=== PATIENT | male | born 1960 | race Caucasian/White ===

== ENCOUNTER 2025-01-06 11:49 | Day surgery (SDC) | payer OTHER ==
[~2025-01-06] VITALS: Ht 190.5 cm; Wt 81.4 kg
[~2025-01-06 11:49] MED LIST: Lactated Ringer's 1,000 ML IV ONE; propofoL 50 ML IV ONE
[2025-01-06] MEDS ORDERED: TAMSULOSIN HCL0.4 M1 (12:35)
[2025-01-06] MEDS ORDERED: VALA500 (12:35)
[2025-01-06] MEDS ORDERED: Ritalin10 MG (12:36)
[2025-01-06] MEDS ORDERED: HUMIRA PEN40 MG/0.2 (12:36)
[2025-01-06] MEDS ORDERED: MONT5TCH (12:36)
[2025-01-06] MEDS ORDERED: Lactated Ringer's 1,000 ML IV ONE (12:52)
[2025-01-06] MEDS ORDERED: propofoL 50 ML IV ONE (13:57)
== END 2025-01-06 14:23 | disposition home or self-care (01) ==
LOC: ORSCSDS 11:49
PROVIDERS: Internal Medicine Gastroenterology
PROC: 0DBC8ZX Excision of Ileocecal Valve, Via Natural or Artificial Opening Endoscopic, Diagnostic (ICD-10-PCS; principal; 2025-01-06 13:15)
PROC: 0DBK8ZX Excision of Ascending Colon, Via Natural or Artificial Opening Endoscopic, Diagnostic (ICD-10-PCS; principal; 2025-01-06 13:15)
PROC: 0DBH8ZX Excision of Cecum, Via Natural or Artificial Opening Endoscopic, Diagnostic (ICD-10-PCS; principal; 2025-01-06 13:15)
PROC: 0DBE8ZX Excision of Large Intestine, Via Natural or Artificial Opening Endoscopic, Diagnostic (ICD-10-PCS; principal; 2025-01-06 13:15)
PROC: 0DBP8ZX Excision of Rectum, Via Natural or Artificial Opening Endoscopic, Diagnostic (ICD-10-PCS; principal; 2025-01-06 13:15)
DX: K51.90 Ulcerative colitis, unspecified, without complications (principal); Z86.0101 Personal history of adenomatous and serrated colon polyps; D12.0 Benign neoplasm of cecum; K63.5 Polyp of colon; Z79.899 Other long term (current) drug therapy; Z87.891 Personal history of nicotine dependence
CPT/HCPCS: 88305; J2704; J7120